=== PATIENT | female | born 2000 | race Hispanic/Latino ===

== ENCOUNTER 2023-12-20 09:38 | Emergency (ER) | payer OTHER, SELFPAY ==
[2023-12-20 09:48] VITALS: BP 118/80; PULSE 104; RESP 14; TEMP 36.3; O2SAT 99
--- NOTE | 2023-12-20 10:33 | ED.GENADULT ---
HPI - General Adult General Chief complaint: Unspecified Stated complaint: note for work Time Seen by Provider: 12/20/23 10:18 Source: patient, RN notes reviewed and old records reviewed Mode of arrival: ambulatory Limitations: no limitations History of Present Illness HPI narrative: 23-year-old female to Express Care with complaint of headache, decreased appetite, nausea and vomiting since yesterday. Patient states that all symptoms aside from nausea and decreased appetite have self resolved. Patient requesting a note stating she was seen today because she missed group therapy yesterday. Patient currently denies chest pain, shortness of breath, nausea, vomiting, diarrhea, ear pain, sore throat, allergies. Respirations even and nonlabored. No signs of distress. Patient able to tolerate fluids by mouth. Related Data Home Medications Medication Instructions Recorded Confirmed No Home Medications 12/20/23 12/20/23 Allergies Allergy/AdvReac Type Severity Reaction Status Date / Time No Known Allergies Allergy Verified 12/20/23 09:54 Review of Systems Review of Systems: All systems reviewed & are unremarkable except as noted in HPI and below Constitutional: Constitutional: Reports as per HPI, Denies fatigue, Denies fever(s), Denies headache(s) and Reports poor appetite Eyes: Eyes: Reports no additional eye complaints ENT: Reports system reviewed and no additional complaints, except as documented Cardiovascular: Cardiovascular: Reports no additional cardiovascular complaints, Denies chest pain and Denies dyspnea Respiratory: Respiratory: Reports no additional respiratory complaints, Denies cough and Denies dyspnea Gastrointestinal: Gastrointestinal: Reports nausea Musculoskeletal: Musculoskeletal: Reports no additional musculoskeletal complaints Neurologic: Reports system reviewed and no additional complaints, except as documented Psychiatric: Psychiatric: Reports no additional psychiatric complaints PMFSH Comments At the time of my signature, I reviewed and agree with the nursing past medical, surgical, social, and family history. There is no relevant family history pertinent to the patient complaint. Exam Const: General: cooperative, healthy appearing, comfortable, no acute distress, alert and well nourished Nutritional Appearance: well nourished Orientation/consciousness: patient oriented x3 Limitations: no limitations HENMT: Head: normal to inspection Ears: external ears normal Face/Nose/Sinus: Normal external nose present, Normal nares present, normal facial exam, No erythema and No edema Face and sinus: normal facial exam, no erythema and no edema Mouth: Yes Normal oral and palatal mucosa present Eyes: General: appearance normal, both eyes and all related structures Neck: Neck: normal visual inspection, full ROM and no meningeal signs Lymphatic: no lymphadenopathy noted and no lymphedema noted Chest: Chest palpation & inspection: normal inspection of the chest Resp: Effort & Inspection: normal respiratory effort and able to speak in complete sentences Auscultation: clear to auscultation bilaterally Cardio: Jugular venous distension: no JVD Rate: regular rate Rhythm: regular rhythm Back/Spine/Pelvis: Cervical Spine: cervical ROM normal Skin: General skin exam: normal color, no rashes or lesions noted and turgor normal Neuro: General: patient oriented x3, gait normal, moves all extremities and no meningeal signs Speech: normal speech Gait exam (Neuro): Normal gait present Extrem: General: normal to inspection, full ROM and capillary refill normal Psych: Appearance: grossly normal and well kempt Course Course Emergency Course: Some parts of this dictation were generated by voice recognition software and may contain typographical and/or grammatical inaccuracies. Level of Care: Express Care Visit Vital Signs Vital signs: Vital Signs Temperature 36.3 C L 12/20/23 09:48
== END 2023-12-20 10:36 | disposition home or self-care (01) ==
PROVIDERS: Emergency Provider Nurse Practitioner Family; PCP Internal Medicine
DX: K52.9 Noninfective gastroenteritis and colitis, unspecified (principal)
CPT/HCPCS: 99202; G0463

== ENCOUNTER 2024-02-07 15:48 | Emergency (ER) | payer OTHER, SELFPAY ==
[2024-02-07 15:59] VITALS: BP 131/95; PULSE 111; RESP 14; TEMP 36.4; O2SAT 100
--- NOTE | 2024-02-07 16:40 | ED.HA ---
HPI - Headache General Chief Complaint: Headache Stated Complaint: Headache/Nausea Time Seen by Provider: 02/07/24 16:20 Source: patient, RN notes reviewed and old records reviewed Mode of arrival: ambulatory Limitations: no limitations History of Present Illness HPI Narrative: 23 year old female presents to [facility] care with complaints of headache last night associated with nausea and did vomit X1 during the night. Patient reports that he thinks maybe he had too much caffeine.Patient reports that headache was in the frontal area of her head but has resolved at present tie. Patient states no known fevers chills or sweats, denies any sore throat or any ear pain or any sinus congestion or drainage. Patient requests note stating she was seen today, she states that she was suppose to go to court and didn't go due to illness. MD elicited complaint: headache (with nausea and one episode of vomiting) Onset (ago): day(s) (last evening but has resolved) Location: frontal Treatments prior to arrival: ibuprofen Related Data Home Medications Medication Instructions Recorded Confirmed aripiprazole 5 mg tablet mg 02/07/24 clonidine HCl 0.1 mg tablet mg 02/07/24 hydroxyzine pamoate 25 mg capsule mg 02/07/24 Allergies Allergy/AdvReac Type Severity Reaction Status Date / Time No Known Allergies Allergy Verified 02/07/24 16:34 Review of Systems Review of Systems: CONSTITUTIONAL: Denies fever, chills, or sweats. EYES: Denies visual changes, redness, or discharge. ENT: Denies rhinorrhea, congestion, sore throat, or otalgia. CARDIOVASCULAR: Denies chest pain, palpitations, or edema. RESPIRATORY: Denies cough or dyspnea. GASTROINTESTINAL: Denies abdominal pain,episode of nausea, vomitingX1, no diarrhea. GENITOURINARY: Denies dysuria or hematuria. SKIN: Denies rash or itching. MUSCULOSKELETAL: Denies back pain, joint pain, or myalgia. NEUROLOGIC: Reports frontal headache last evening which has resolved, no numbness, or weakness. PSYCHIATRIC: Reports history of anxiety or depression. All systems reviewed & are unremarkable except as noted in HPI and below PMFSH Past Medical History Medical History (Updated 02/09/24 @ 08:11 by Luci Moe NP) Fracture of ankle Fracture of arm Surgical History Surgical History (Updated 02/09/24 @ 08:05 by Luci Moe NP) History of repair of congenital cleft palate Social History Social History (Updated 02/09/24 @ 08:07 by Luci Moe NP) Smoking status: Current every day smoker Tobacco type: cigarettes Alcohol intake: unknown Alcohol use details: states no present alcohol use Substance use type: does not use Gender identity (if verbalized by the patient): Female Comments At time of signature, agree with nursing past medical, surgical, social and family history. There is no relevant family history pertinent to the presenting complaint Exam Narrative: GENERAL: Well-appearing, well-nourished, and in no acute distress. HEAD: Normocephalic, atraumatic. EYES: PERRLA and EOMI.no nystagmus ENT: Nares clear, no rhinorrhea or epistaxis. Mucous membranes moist.TM's normal, throat pink with no swelling NECK: Supple.no lymphadenopathy CHEST: Clear to auscultation. No respiratory distress.SAO2 100% on room air HEART: Regular rate and rhythm. No murmur heard. Normal peripheral pulses. ABDOMEN: Soft, nontender, nondistended, normal active bowel sounds.no further nausea or vomiting since early this morning EXTREMITIES: Normal range of motion. No edema. SKIN: Warm, dry, no rash. NEURO: No focal deficits. Alert and oriented x3.voices no headache pain at present time, cranial nerves intact with no deficit, gait steady Course Course Emergency Course: Patient is aware of diagnosis, understands and agrees to treatment plan.? Anticipatory guidance given.? Patient agrees to follow-up as directed and is aware of reasons to seek care at the emergency department. Portion
--- NOTE | 2024-02-07 17:17 | PC.NURSE ---
1659 bp recheck 136/59 right arm.
== END 2024-02-07 16:59 | disposition home or self-care (01) ==
PROVIDERS: Emergency Provider Registered Nurse; PCP Internal Medicine
DX: R51.9 Headache, unspecified (principal); F17.210 Nicotine dependence, cigarettes, uncomplicated
CPT/HCPCS: 99213; G0463

== ENCOUNTER 2025-04-08 21:49 | Emergency (ER) | payer SELFPAY ==
--- OUTSIDE RECORDS SUMMARY | 2017-07-19 19:00 | XMS_ITS | Continuity of Care Document ---
Author Organization [facility] Address [address] [place] [address] Phone Care Team Providers Care Automotive Accessory Installer Name Role Phone Julieta Garcia MD Unavailable Unavailable Allergies, Adverse Reactions, Alerts Substance Reaction Status Criticality No Known Allergies Active No Inform ation Procedures Procedure Date Special Reports Or Forms Refraction Eye Exam & Treatment Eye Exam & Treatment Eye Exam & Treatment Eye Exam & Treatment Eye Exam & Treatment Refraction Eye Exam & Treatment Refraction Advance Directives Directive Yes / No Effective Date File Name No Information Encounters Encounter Description Practice Location Reason(s) For Visit Diagnoses Date Provider Providers Copied on Encounter [facility], [address] [place] [address] [address], [place], [place], [address], [place] tel:[phone] SEC [place] DC Professional No Information 7 Radha Rendon. [address] [place], [address], . tel:[phone] Referring Provider: Edward Espinosa, [address] [facility] [place], [address] . tel:[phone] [facility], [address] [place] [address] [address], [place], [place], [address], [place] tel:[phone] SEC [place] AGUILAR Professional Complete Exam (chief complaint) Exotropia, alternating May-10 06- 6 Oneil Leon. [address] [facility] [address], [place], [place], [address], [place]. tel:[phone] Referring Provider: Edwardlary Espinosa, [address] [facility] [address], [place], [address] . tel:[phone] [facility], [address], [place], [place], [address], [place] tel:[phone] SEC [place] AGUILAR Professional No Information 4 Oneil Leon. [address] [facility], [address] [place], [address], . tel:[phone] Referring Provider: Edward Nestorjoseejuan Espinosa, [address] [facility] [address], [place], [address] . tel:[phone] [facility], [address], [place], [place], [address], [place] tel:[phone] SEC [place] AGUILAR Professional No Information 2 Oneil Leon. [address] [facility], [address] [place], [address], [place]. tel:[phone] Referring Provider: Edward Nestorizabella Espinosa, [address] [facility] [address], [place], [address] . tel:[phone] [facility], [address], [place], [place], [address], [place] tel:[phone] SEC [place] AGUILAR Professional No Information 1 Oneil Leon. [address] [facility], [address] [place], [address], [place]. tel:[phone] Referring Provider: Edward Espinosa, [address] [facility], [place], [address] . tel:[phone] [facility], [address], [place], [place], [address], tel:[phone] SEC [place] LAUREN Professional No Information 9 Nestorizabella Leon. [address] [facility] [place], [address], [place]. tel:[phone] [facility], [address], [place], [place], [address], tel:[phone] SEC [place] LAUREN Professional No Information 7 Oneil Edward. [address] [facility] [place], [address], . tel:[phone] Family History Family Member Type Diagnosis Age At Onset No Information Payers Payer name Insurance type Covered democrat ID Authoriza tion(s) No Information Social History Type Description Quantity Date Captured Comments Sex Female Smoking Status No Information Chief Complaint And Reason For Visit No Information Reason For Referral Reason For Referral No Information History Of Present Illness Encounter Date Complaint History Of Prese nt Illness Complete Exam The 15 year 10 m onth old female presents for Complete Exam ou. Pateint failed the vision test at school. Patient doesn't have current glasses. Functional Status Date Functional Assessmen t No Information Instructions Date Instruction Additional Infor mation Follow up - Return i n 2 years with Edward Riggs M.D. for Complete Exam. Impression/Plan - Di scussed diagnosis in detail with patient. No signs of Glaucoma or AMD OU. Refractive error change, new rx for glasses given to patient. Glasses recommended most of the time. School eye exam form completed in office. Return to clinic in 2 years for complete exam or sooner with any problems. Exotropia, alternati ng - Educational material given Related to Exotropia, alternating - RTC in 1 year for complete exa m Related to See impression: general plan General plan -ESOTRO R[place] NOS -ACCOMMODATIVE ESOTROPIA - Diagnosis discussed in detail with pt. New rx for glasses provided to pt today. RTC in 1 year for complete exam. Educational materials provided:about today's exam. Related to See impression: general plan astygmatism - glasse s optional- 20/40 w/o acc et in past-ortho now and 04/16 depth perception Assessments Type Assessment Date No Information Patient Care Teams Name Effective Dates (start - stop) Status Members No Information
--- OUTSIDE RECORDS SUMMARY | 2017-07-19 19:00 | XMS_ITS | Continuity of Care Document ---
Author Organization [facility] Address [address] [place] [address] Phone Care Team Providers Care Director Enterprise Systems Name Role Phone Julieta Garcia MD Unavailable [...] Diagnoses Date Provider Providers Copied on Encounter [facility], [address] [place] [address] [address], [place], [place], [address], [place] tel:[phone] SEC [place] Professional No Information 7 Radha Rendon. [address] [place], [address], . tel:[phone] Referring Provider: Edward Espinosa, [address] [facility] [place] [place], [address] . tel:[phone] [facility], [address] [place] [address] [address], [place], [place], [address], [place] tel:[phone] SEC [place] AGUILAR Professional Complete Exam (chief complaint) Exotropia, alternating May-10 06- 6 Oneil Leon. [address] [facility] [address], [place], [place], [address], [place]. tel:[phone] Referring Provider: Edwardlary Espinosa, [address] [facility] [address], [place], [address] . tel:[phone] [facility], [address], [place], [place], [address], [place] tel:[phone] SEC He[place] AGUILAR Professional No Information 4 Oneil Leon. [address] [facility], [address] [place], [address], . tel:[phone] Referring Provider: Edward Nestorjoseejuan Espinosa, [address] [facility] [address], [place], [address] . tel:[phone] [facility], [address], [place], [place], [address], [place] tel:[phone] SEC He[place] AGUILAR Professional No Information 2 Oneil Leon. [address] [facility], [address] [place], [address], [place]. tel:[phone] Referring Provider: Edward Nestorizabella Espinosa, [address] [facility] [address], [place], [address] . tel:[phone] [facility], [address], [place], [place], [address], [place] tel:[phone] SEC He[place] AGUILAR Professional No Information 1 Oneil Leon. [address] [facility], [address] [place], [address], [place]. tel:[phone] Referring Provider: Edward Espinosa, [address] [facility] [address], [place], [address] . tel:[phone] [facility], [address], [place], [place], [address], tel:[phone] SEC [place] LAUREN Professional No Information 9 Nestorizabella Leon. [address] [facility] [place], [address], [place]. tel:[phone] [facility], [address], [place], [place], [address], tel:[phone] SEC [place] LAUREN Professional No Information 7 Oneil Edward. [address] [facility] [place], [address], . tel:[phone] Family History Family Member Type Diagnosis Age At Onset No Information Payers Payer name Insurance type Covered libertarian ID Authoriza tion(s) No Information Social History [...]
--- OUTSIDE RECORDS SUMMARY | 2025-04-08 21:51 | XMS_ITS | Clinical Summary ---
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 Polysubstance abuse 11/15/2022 Resolved Problems Problem Noted Date Diagnosed Date Resolved Date Hypokalemia 11/16/2022 11/17/2022 Encounters Date Type Department Care Team Description 03/28/2025 1:30 PM CDT - 03/28/2025 9:55 PM CDT Emergency [facility] Emergency Department [address] [place] [address] Visual hallucinations (Primary Dx) Discharge Disposition: Discharge to psych hospital or psych unit 02/16/2025 12:44 AM CDT - 02/16/2025 2:13 AM CDT Emergency [facility] Emergency Department [address] [place] [address] Well woman exam (Primary Dx) Discharge Disposition: Discharge to home or self care from Last 3 Months Surgical History Surgery Date Site/Laterality Comments NO PAST SURGERIES Medical History Medical History Date Comments Adhd Anxiety History of suicidal ideation Family History Medical History Relation Name Comments Hypertension Maternal Grandmother Relation Name Status Comments Maternal Grandmother Social History Tobacco Use Types Packs/Day Years Used Date Smoking Tobacco: Every Day Vaping Tobacco Cessation:Ready to Q uit: Not Asked; Counseling Given: Not Answered Personal Safety Answer Date Recorded Have you ever been in or are you currently in a harmful physical or emotional relationship or is someone making you feel afraid or unsafe? 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 Gender Identity Not on file Sexual Orientation Not on file Obstetrics History Para Term AB IAB SAB Ectopic Multiple Livin g Live Births 0 0 0 0 0 0 0 0 0 0 0 Last Filed Vital Signs Vital Sign Reading Time Taken Comments Blood Pressure 108/71 03/28/2025 7:22 PM CDT Pulse 84 03/28/2025 7:22 PM CDT Temperature 36.9 C (98.4 F) 03/28/2025 1:29 PM CDT Respiratory Rate 16 03/28/2025 1:29 PM CDT Oxygen Saturation 98% 03/28/2025 7:22 PM CDT Inhaled Oxygen Concentration - - Weight 72.6 kg (160 lb) 03/28/2025 1:29 PM CDT Height 154.9 cm (5' 1) 03/28/2025 1:29 PM CDT Body Mass Index 30.23 03/28/2025 1:29 PM CDT Plan of Treatment Health Maintenance Due Date Last Done Comments Cervical Cancer Screening 1998 Depression Screening 1998 Hepatitis C Screening 1998 Pneumococcal vaccine <65 (1 of 1 - PPSV23, PCV20, or PCV21) 2004 09/08/2000, 1998, 1998 Regular Well Visit/Exam 18-64 2016 Covid-19 Vaccine (3 2023-2 5 season) 2024 04/20/2021, 03/23/2021 Influenza Vaccine (#1) 2025 , 05/07/2020, 06/22/2019, Additional history exists DTaP/Tdap/Td Vaccine (8 - Td or Tdap) 10/04/2029 10/04/2019, 07/25/2008, 02/28/2004, Additional history exists Hepatitis B Screening Completed 10/28/1999 , 1998, 1998 Varicella Vaccines Completed 12/08/2006, 02/17/2000 HPV Vaccines Completed 06/12/2010, 08/11/2009, 07/23/2009 Procedures Procedure Name Priority Date/Time Associated Diagnosis Comments POCT HCG, URINE Routine 03/28/2025 2:15 PM CDT URINALYSIS, MICROSCOPIC ONLY STAT 03/28/2025 2:12 PM CDT DRUGS OF ABUSE SCREEN, URINE WITHOUT CONFIRMATION STAT 03/28/2025 2:12 PM CDT URINE CULTURE STAT 03/28/2025 2:12 PM CDT URINALYSIS AND REFLEX TO MICROSCOPIC AND CULTURE STAT 03/28/2025 2:12 PM CDT SALICYLATE LEVEL STAT 03/28/2025 1:55 PM CDT ACETAMINOPHEN LEVEL STAT 03/28/2025 1 :55 PM CDT MAGNESIUM Routine 03/28/2025 1:55 PM CDT EGFR STAT 03/28/2025 1:55 PM CDT DIFFERENTIAL AUTO STAT 03/28/2025 1:5 5 PM CDT ETHANOL STAT 03/28/2025 1:55 PM CDT THYROID FUNCTION CASCADE STAT 03/28/2025 1:55 PM CDT COMPREHENSIVE METABOLIC PANEL STAT 03/28/2025 1:55 PM CDT CBC WITH AUTO DIFFERENTIAL STAT 03/28/2025 1:55 PM CDT COVID-19 CORONAVIRUS RNA STAT 03/28/2025 1:55 PM CDT HCG, BLOOD, QUANTITATIVE STAT 02/16/2025 1:15 AM CDT HCG, URINE, QUALITATIVE STAT 02/16/2025 12:44 AM CDT from Last 3 Months Results * POCT hCG, urine (03/28/2025 2:15 PM CDT) HCG, ur, POC Negative Negative Lot Number [id number] QC Backgroud Clear Acceptable QC Control Line Acceptable Urine 03/28/2025 2:15 PM CDT Magan Alexander MD POINT OF CARE TEST ORDERABLES Final Result * (ABNORMAL) Urinalysis reflex to microscopic and culture Urine (03/28/2025 2:12 PM CDT) Color, ur Straw Yellow Clarity, ur Clear Clear [facility] ([place]) Specific gravity, ur 1.002(L) 1.003 - 1.030 [facility] ([place]) pH, urine 7.5 [facility] ([place]) Comment: Interpretive Data U rine pH is affected by diet, medications, systemic acid-base disturbances, and renal tubular function. pH may affect urinary stone formation. For example, urine pH below 6.0 may help reduce the tendency for calcium phosphate stones and pH greater than 6.0 may reduce the tendency for uric acid stone formation. Source: [employer] Current Interpretive Data was last revised on 2017 Protein, ur ql Negative Negative [facility] ([place]) Glucose, ur ql Negative Negative [facility] ([place]) Ketones, ur Negative Negative [facility] [place]) Bilirubin, ur Negative Negative [facility] ([place]) Blood, ur Negative Negative [facility] [place]) Urobilinogen, ur <2.0 <2.0 mg/dL [facility] ([place]) Nitrite, ur Negative Negative [facility] ([place]) Leukocyte esterase, ur 2+(A) Negative [facility] ([place]) UA reflex comment Reflex to microscopic UA will be performed. [facility] ([place]) Urine 03/28/2025 2:12 PM CDT 03/28/2025 2:19 PM CDT Magan Alexander MD LAB MICROBIOLOGY - GENERAL ORDERABLES Final Result [facility] ([place]) 1 [facility] Department [place] [address] * Drugs of Abuse Screen, Urine without Confirmation (03/28/2025 2:12 PM CDT) Amphetamine, ur Not Detected CutOff 500ng/mL [facility] ([place]) Comment: Interpretive Data - Amphetamines: Samples containing greater than 500 ng/mL d-methamphetamine or other cross-reacting amphetamine compounds are reported as positive. Amphetamine immunoassays are subject to significant false positive rates due to cross-reactivity of non-amphetamine drugs. Confirmatory testing required for definitive results. Current Interpretive Data was last reviewed 2023. Barbiturates, ur Not Detected CutOff 200ng/mL [facility] ([place]) Comment: Interpretive Data - Barbiturates: Samples containing greater than 200 ng/mL secobarbital or other cross-reacting barbiturate compounds are reported as positive. False positive and false negative results are possible. Confirmatory testing required for definitive results. Current Interpretive Data was last reviewed 2023. Benzodiazepines, ur Not Detected CutOff 100ng/mL [facility] ([place]) Comment: Interpretive Data - Benzodiazepines: Samples containing greater than 100 ng/mL nordiazepam or other cross-reacting compounds are reported as positive. False positive and false negative results are possible. Confirmatory testing required for definitive results. Current Interpretive Data was last reviewed 2023. Cannabinoids, ur Not Detected CutOff 50 ng/mL [facility] ([place]) Comment: Interpretive Data - Cannabinoids: Samples containing greater than 50 ng/mL delta-9 THC -COOH or other cross- reacting compounds are reported as positive. False positive and false negative results are possible. Confirmatory testing required for definitive results. Current Interpretive Data was last reviewed 2023. Cocaine, ur Not Detected CutOff 150ng/mL [facility] ([place]) Comment: Interpretive Data - Cocaine: Samples containing greater than 150 ng/mL benzoylecgonine or other cross- reacting compounds are reported as positive. False positive and false negative results are possible. Confirmatory testing required for definitive results. Current Interpretive Data was last reviewed 2023. Fentanyl, Ur Not Detected CutOff 5 ng/mL [facility] ([place]) Comment: Interpretive Data - Fentanyl: Samples containing greater than 5 ng/mL norfentanyl, fentanyl, or other cross-reacting fentanyl compounds are reported as positive. False positive and false negative results are possible. Confirmatory testing required for definitive results. Current Interpretive Data was last reviewed 2023. Methadone, ur Not Detected CutOff 300ng/mL [facility] ([place]) Comment: Interpretive Data - Methadone: Samples containing greater than 300 ng/mL d,l-methadone or other cross-reacting compounds are reported as positive. False positive and false negative results are possible. Confirmatory testing required for definitive results. Current Interpretive Data was last reviewed 2023. Opiates, ur Not Detected CutOff 300ng/mL [facility] ([place]) Comment: Interpretive Data - Opiates: Samples containing greater than 300 ng/mL morphine or other cross-reacting compounds are reported as positive. False positive and false negative results are possible. Confirmatory testing required for definitive results. Current Interpretive Data was last reviewed 2023. Oxycodone, ur NOT DETECTED CutOff 100ng/mL [facility] ([place]) Comment: Interpretive Data - Oxycodone: Samples containing greater than 100 ng/mL oxycodone or other cross-reacting compounds are reported as positive. False positive and false negative results are possible. Confirmatory testing required for definitive results. Current Interpretive Data was last reviewed 2023. Phencyclidine, ur Not Detected CutOff 25 ng/mL [facility] ([place]) Comment: Interpretive Data - Phencyclidine: Samples containing greater than 25 ng/mL phencyclidine or other cross-reacting compounds are reported as positive. False positive and false negative results are possible. Confirmatory testing required for definitive results. Current Interpretive Data was last reviewed 2023. Urine Creatinine 14 mg/dL [facility] ([place]) Comment: Interpretive Data Urine Creatinine: < 10 mg/dL is extremely dilute = or > 10 but < 20 mg/dL is dilute = or > 20 mg/dL is normal Current Interpretive Data was last revised on 2017. Urine 03/28/2025 2:12 PM CDT 03/28/2025 2:19 PM CDT Narrative [facility] ([place]) - 03/28/2025 3:13 PM CDT Drug of Abuse screening is performed by immunoassay for medical purposes only. This is not to be used for Pain Management purposes. Magan Alexander MD LAB URINE ORDERABLE S Final Result Performing Organization Address [facility] Co de Phone Number [facility] ([place] 1 [facility] [place] [address] * (ABNORMAL) Urinalysis, microscopic only (03/28/2025 2:12 PM CDT) WBC, ur 11-20(A) 0 - 5 /HPF RBC, ur 0-2 0 - 2 /HPF [facility] ([place]) Epithelial cells, squamous, ur 1-5 0 - 5 /HPF [facility] ([place]) Culture Reflex Comment Reflex to urine culture will be performed. [facility] ([place]) Urine 03/28/2025 2:12 PM CDT 03/28/2025 2:19 PM CDT us Magan Alexander MD LAB URINE ORDERABLE S Final Result Performing Organization Address City/[facility]/ZIP Co de Phone Number [facility] ([place] 1 [facility] [place] [address] * Urine culture Urine (03/28/2025 2:12 PM CDT) Report Final Report: Less than 100,000 colonies/mL (clinically insignificant growth based on current clinical standards) Comment:Testing performed by : [facility], [address] [facility] [place]., [address] Organism (CLINICALLY INSIGNIFICANT GROWTH [facility] ([place]) Urine 03/28/2025 2:12 PM CDT 03/28/2025 4:15 PM CDT Narrative [facility] ([place]) - 03/30/2025 6:10 AM CDT Urine culture reflexed based upon urinalysis results. Testing performed by [facility] ([phone]) Magan Alexander MD LAB MICROBIOLOGY - GENERAL ORDERABLES Final Result [facility] ([place]) 1 [facility] Department [place] [address] * COVID-19 Coronavirus RNA Nasopharyngeal (03/28/2025 1:55 PM CDT) COVID-19 RNA Negative Negative Nasopharyngeal 03/28/2025 1: 55 PM CDT 03/28/2025 2:00 PM CDT Narrative [facility] ([place]) - 03/28/2025 2:33 PM CDT Is the patient experiencing any symptoms consistent with COVID (eg. Fever, cough, shortness of breath)?->No What is the reason for testing?->Screening prior to Behavioral health admission Interpretive data: Testing performed by [facility]. This test is performed using the Platial Xpert Xpress CoV-2 plus assay. This is a real-time RT-PCR test intended for the qualitative detection of nucleic acid from the SARS-CoV-2. This assay has been cleared by the [place] Food and Drug administration. The performance characteristics have been verified by [facility]. Results must be considered in the clinical context, and a negative result does not rule out infection. Interpretive data last revised 2024. Interpretive data: Testing performed by [facility]. This test is performed using the Platial Xpert Xpress CoV-2 plus assay. This is a real-time RT-PCR test intended for the qualitative detection of nucleic acid from the SARS-CoV-2. This assay has been cleared by the [place] Food and Drug administration. The performance characteristics have been verified by [facility]. Results must be considered in the clinical context, and a negative result does not rule out infection. Interpretive data last revised 2024. us Magan Alexander MD LAB MICROBIOLOGY - GENERAL ORDERABLES Final Result [facility] ([place]) 1 [facility] [place] [address] * eGFR (03/28/2025 1:55 PM CDT) eGFR >90 >=60 mL/min/1. 73 m2 Comment: Interpretive Data Reference Interval Normal >/= 90 mL/min/1.73m2 Mildly decreased* 60 - 89 mL/min/1.73m2 Mildly to moderately decreased 45 - 59 mL/min/1.73m2 Moderately to severely decreased 30 - 44 mL/min/1.73m2 Severely decreased 15 - 29 mL/min/1.73m2 Kidney Failure < 15 mL/min/1.73m2 *Relative to young adult level Estimated glomerular filtration rate is determined by the 2020 CKD-EPI equation recommended by the National Kidney Foundation (A Unifying Approach to GFR Estimation: Recommendations of the NKF-ASK Task Force on Reassessing the Inclusion of Race in Diagnosing Kidney Disease, JASN 2020). The CKD-EPI equation should not be used for patients with unstable renal function and has not been validated in children and those over 70. Current interpretive data was last reviewed 2021. Blood 03/28/2025 1:55 PM CDT 03/28/2025 2:00 PM CDT us Magan Alexander MD LAB BLOOD ORDERABLE S Final Result [facility] ([place]) 1 [facility] [place] [address] * Differential, auto (03/28/2025 1:55 PM CDT) Neutrophil abs 3.32 1.50 - 6.50 K/cumm Imm gran abs 0.04 0.00 - 0.10 K/cumm [facility] ([place]) Lymphocyte abs 1.48 0.80 - 3.30 K/cumm [facility] ([place]) Monocyte abs 0.62 0.20 - 0.80 K/cumm [facility] ([place]) Eosinophil abs 0.24 0.00 - 0.50 K/cumm [facility] ([place]) Basophil abs 0.04 0.00 - 0.10 K/cumm [facility] ([place]) Neutrophil pct 57.8 % [facility] ([place]) Comment: Interpretive Data Percent cell count reference ranges are not reported, since discordance with absolute values may lead to misinterpretation of CBC data. Current Interpretive Data was last revised on 2017. Imm gran pct 0.7 % [facility] ([place]) Comment: Interpretive Data Percent cell count reference ranges are not reported, since discordance with absolute values may lead to misinterpretation of CBC data. Current Interpretive Data was last revised on 2017. Lymphocyte pct 25.8 % [facility] ([place]) Comment: Interpretive Data Percent cell count reference ranges are not reported, since discordance with absolute values may lead to misinterpretation of CBC data. Current Interpretive Data was last revised on 2017. Monocyte pct 10.8 % [facility] ([place]) Comment: Interpretive Data Percent cell count reference ranges are not reported, since discordance with absolute values may lead to misinterpretation of CBC data. Current Interpretive Data was last revised on 2017. Eosinophil pct 4.2 % [facility] ([place]) Comment: Interpretive Data Percent cell count reference ranges are not reported, since discordance with absolute values may lead to misinterpretation of CBC data. Current Interpretive Data was last revised on 2017. Basophil pct 0.7 % [facility] ([place]) Comment: Interpretive Data Percent cell count reference ranges are not reported, since discordance with absolute values may lead to misinterpretation of CBC data. Current Interpretive Data was last revised on 2017. Blood 03/28/2025 1:55 PM CDT 03/28/2025 2:00 PM CDT us Magan Alexander MD LAB BLOOD ORDERABLE S Final Result [facility] ([place]) 1 [facility] Department [place] [address] * Thyroid Function [place] (03/28/2025 1:55 PM CDT) [facility] TSH 2.32 0.30 - 4.20 mcIUnit/mL [facility] ([place]) Blood 03/28/2025 1:55 PM CDT 03/28/2025 2:00 PM CDT Magan Alexander MD LAB BLOOD ORDERABLE S Final Result Performing Organization Address [facility]/ZIP Co de Phone Number [facility] ([place]) 1 [facility] [place] [address] * (ABNORMAL) CBC with auto differential (03/28/2025 1:55 PM CDT) [facility] WBC 5.74 3.80 - 9.90 K/cumm Hgb 11.8(L) 11.9 - 15.5 g/dL [facility] ([place]) Hct 36.0 35.6 - 45.5 % [facility] ([place]) Plt 178 150 - 400 K/cumm [facility] ([place]) MPV 11.7 9.1 - 12.3 fL [facility] ([place]) RBC 4.13 3.90 - 5.20 M/cumm [facility] ([place]) MCV 87.2 81.3 - 96.4 fL [facility] ([place]) MCH 28.6 27.1 - 33.3 pg [facility] [place]) MCHC 32.8 32.3 - 35.7 g/dL [facility] ([place]) RDW CV 13.2 11.1 - 14.9 % [facility] [place]) RDW SD 42.3 35.7 - 48.1 fL [facility] ([place]) NRBC abs 0.00 0.00 - 0.01 K/cumm [facility] ([place]) Blood Venous blood specimen / Unknown 03/28/2025 1:55 PM CDT 03/28/2025 2:00 PM CDT us Magan Alexander MD LAB BLOOD ORDERABLE S Final Result [facility] ([place]) 1 [facility] [place] [address] * Magnesium (03/28/2025 1:55 PM CDT) Magnesium 2.0 1.4 - 2.5 mg/dL [facility] ([place]) Blood 03/28/2025 1:55 PM CDT 03/28/2025 7:25 PM CDT us Pierce Huber MD LAB BLOOD ORDERABLES Final Res ult Performing Organization Address [facility] Co de Phone Number [facility] ([place]) 1 [facility] [place] [address] * Ethanol (03/28/2025 1:55 PM CDT) Ethanol <10 <=10 mg/dL [facility] ([place]) Comment: Interpretive Data Legal limit of intoxication > or = 80 mg/dL Levels > or = 400 mg/dL are potentially TOXIC. Current interpretive data was last revised on 2018. Blood 03/28/2025 1:55 PM CDT 03/28/2025 2:00 PM CDT us Magan Alexander MD LAB BLOOD ORDERABLE S Final Result [facility] ([place]) 1 [facility] [place] [address] * Acetaminophen level (03/28/2025 1:55 PM CDT) Acetaminophen <5 <=5 mcg/mL [facility] ([place]) Comment: Markedly elevated levels of Acetaminophen and it's metabolites may lead to false low test results for cholesterol, HDL, triglycerides and uric acid with the manufacturers test methods used by our lab. Interpretive Data Significant hepatic injury may occur and treatment with n-acetyl cysteine is generally recommended if the acetaminophen level exceeds: 150 mcg/mL at 4 hours after ingestion 75 mcg/mL at 8 hours after ingestion 38 mcg/mL at 12 hours after ingestion 19 mcg/mL at 16 hours after ingestion Consult toxicology or poison control ([phone]) for unknown ingestion time. Current interpretive data was last revised 2023. Blood 03/28/2025 1:55 PM CDT 03/28/2025 7:25 PM CDT Pierce Huber MD LAB BLOOD ORDERABLES Final Res ult Performing Organization Address City/[facility]/ZIP Co de Phone Number [facility] ([place]) [address] [place] [address] [place] [address] * Salicylate level (03/28/2025 1:55 PM CDT) Salicylate <5.0 <=5.0 mg/dL [facility] ([place]) Comment: Interpretive Data Toxic: 30 mg/dL or greater. Current interpretive data was last revised 2023. Blood 03/28/2025 1:55 PM CDT 03/28/2025 7:25 PM CDT Pierce Huber MD LAB BLOOD ORDERABLES Final Res ult Performing Organization Address City/[facility]/ZIP Co de Phone Number [facility] ([place]) [address] [place] [address] [place] [address] * (ABNORMAL) Comprehensive metabolic panel (03/28/2025 1:55 PM CDT) Sodium 141 135 - 145 mmol/L [facility] ([place]) Potassium, pl 3.5 3.3 - 4.9 mmol/L [facility]) Chloride 102 97 - 110 mmol/L [facility] [place]) CO2 26 22 - 32 mmol/L [facility] [place]) Anion gap 13 2 - 15 mmol/L [facility] ([place]) BUN 3(L) 6 - 25 mg/dL [facility] ([place]) Creatinine 0.48(L) 0.60 - 1.10 mg/dL [facility] ([place]) Glucose 88 70 - 199 mg/dL [facility] ([place]) Comment: Interpretive Data Fasting glucose >/= 126 mg/dl is diagnostic for diabetes. Fasting is defined as no caloric intake for at least 8 hours. Fasting glucose between 100 mg/dl to 125 mg/dl is diagnostic of prediabetes. In a patient with classic symptoms of hyperglycemia or hyperglycemic crisis, a random glucose >/= 200 mg/dl is diagnostic for diabetes. In the absence of unequivocal hyperglycemia, results should be confirmed by repeat testing. The classification and Diagnosis of Diabetes Diabetes Care 2021; 46: S19-S40. Current interpretive data was last revised 2022. Calcium 8.1(L) 8.5 - 10.3 mg/dL [facility] ([place]) Bilirubin, total 0.3 0.1 - 1.2 mg/dL [facility] ([place]) Protein, pl 6.6 6.5 - 8.5 g/dL [facility] ([place]) Albumin 3.8 3.5 - 5.0 g/dL [facility] ([place]) Alk phos 83 40 - 130 Units/L [facility] ([place]) ALT 14 7 - 45 Units/L [facility] [place]) AST 19 10 - 45 Units/L [facility] ([place]) Blood 03/28/2025 1:55 PM CDT 03/28/2025 2:00 PM CDT us Magan Alexander MD LAB BLOOD ORDERABLE S Final Result [facility] ([place]) 1 [facility] Department of Laboratories [place], [place] [id number] * hCG, blood, quantitative (02/16/2025 1:15 AM CDT) hCG, quant <5.0 0.0 - 5.0 IUnits/L Comment: Interpretive Data Male: < 5 IU/L Non- premenopausal Female: <5 IU/L The Jessica hCG Beta Quant assay procedure was used. Results from different manufacturers or methods may not be comparable. Serial testing should be performed using the same method. Interpretive Data was last revised on 2023 Blood 02/16/2025 1:15 AM CDT 02/16/2025 1:21 AM CDT Bridger DOSHI LAB BLOOD ORDERA BLES Edited Result - Final [facility] ([place]) 1 [facility] [place] [address] * hCG, urine, qualitative (02/16/2025 12:44 AM CDT) HCG, ur Negative Negative Urine 02/16/2025 12:4 4 AM CDT 02/16/2025 12:45 AM CDT Sun [facility] LAB URINE ORDERABLES Zhanna l Result Performing Organization Address [facility] Co de Phone Number [facility] ([place]) 1 [facility] [place] [address] from Last 3 Months Insurance [facility] Advance Directives For more information, please contact: [phone] * Full Code (Latest Code Status on File) Date Activated Date Inactivated Comments 11/15/2022 9:06 PM 11/18/2022 9:47 PM Care Teams Passenger Train Braker Relationship Specialty Start Date End Date Hetal Malhotra NP [address] [place] [address] PCP - General Nurse Practitioner 03/28/25
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
--- NOTE | 2025-04-08 21:53 | ED_ITS ---
HPI - Animal Bite General Chief Complaint: Animal Bite Stated Complaint: dog bite Time Seen by Provider: 04/08/25 21:52 Source: patient and EMS Mode of arrival: ambulatory Limitations: no limitations History of Present Illness HPI narrative: Patient is a 24-year-old female homeless patient presented to the ER after being bitten by a dog. She had 4 wounds from the dog. One scalp and 3 on the legs. Tetanus shot up-to-date in the past year per patient. Patient was walking through someone's yd and the dog was tied up to the fence wall guarding the house and she was attacked. This was provoked situation as she was trespassing in this person's yd. Dog has shots up-to-date and vaccines up-to-date. EMS talk to the dog owners and he was acting normal. MD complaint: animal bite and animal-related injury Onset (ago): hour(s) ( One) Animal: dog Description of animal: household pet, immunizations UTD and appeared well Mechanism: bite Location: head Location - Extremities: Bilateral: thigh Pain description: sharp Severity scale (1-10): 3 Context: provoked ( patient was trespassing in this person's yd) Associated symptoms: none Treatments prior to arrival: pressure Related Data Patient tetanus UTD: Yes Home Medications ?Medication ?Instructions ?Recorded ?Confirmed ?Last Taken ?Type aripiprazole 5 mg tablet mg 02/07/24 Unknown History clonidine HCl 0.1 mg tablet mg 02/07/24 Unknown Histo ry hydroxyzine pamoate 25 mg capsule mg 02/07/24 Unknown History Allergies Allergy/AdvReac Type Severity Reaction Status Date / Time No Known Allergies Allergy Verified 04/08/25 22:08 Review of Systems Review of Systems: All systems reviewed & are unremarkable except as noted in HPI and below Constitutional: Constitutional: Reports no additional constitutional complaints Eyes: Eyes: Reports no additional eye complaints ENT: Reports system reviewed and no additional complaints, except as documented Cardiovascular: Cardiovascular: Reports no additional cardiovascular complaints Respiratory: Respiratory: Reports no additional respiratory complaints Gastrointestinal: Gastrointestinal: Reports no additional gastrointestinal complaints Genitourinary: Genitourinary: Reports no additional female genitourinary complaints Musculoskeletal: Musculoskeletal: Reports no additional musculoskeletal complaints Integumentary/Breasts: Skin/Breast: Reports system reviewed and no additional complaints, except as docu Neurologic: Reports system reviewed and no additional complaints, except as documented Psychiatric: Psychiatric: Reports no additional psychiatric complaints Endocrine: Endocrine: Reports no additional endocrine complaints Hematologic/Lymphatic: Hematologic/Lymphatic: Reports no additional hematologic/lymphatic complaints Allergic/Immunologic: Allergic/Immunologic: Reports no additional a llergic/immunologic complaints PMFSH Past Medical History Medical History Fracture of ankle Fracture of arm Surgical History Surgical History History of repair of congenital cleft palate Social History Social History Smoking status: Current every day smoker Tobacco type: cigarettes Alcohol intake: unknown Alcohol use details: states no present alcohol use Substance use type: does not use Gender identity (if verbalized by the patient): Female Exam Const: General: healthy appearing Nutritional Appearance: well nourished Orientation/consciousness: patient oriented x3 HENMT: Head: normal to inspection Ears: external ears normal Face/Nose/Sinus: Normal external nose present Eyes: Conjunctivae: conjunctivae normal Pupils: Equal, round and reactive pupils present EOM: EOMs intact bilaterally Neck: Neck: normal visual inspection Chest: Chest palpation & inspection: normal inspection of the chest Resp: Effort & Inspection: normal respiratory effort and not labored Auscultation: clear to auscultation bilaterally and no crackles Cardio: Rate: regular rate Rhythm: regular rhythm Heart sounds: no murmurs GI: Inspection: non-distended GI Palp: Yes Soft to palpation and No Tenderness to palpation present (GI) Auscultation: normal bowel sounds : General: Yes bladder normal to palpation Back/Spine/Pelvis: Back: no CVA tenderness Skin: General skin exam: normal color Rashes: no rashes Wounds: wound noted Other: midline posterior scalp had a linear 3 cm laceration with bleeding controlled and no signs of infection at this time; soft tissue appreciated with fat layer; also there were 3 more wounds on the lower extremity on with 1 on the left and 2 on the right as teeth dominic puncture wounds and bleeding was controlled and no signs of infection at this time Neuro: General: patient oriented x3, moves all extremities and no meningeal signs Extrem: General: normal to inspection Psych: Mental Status: mental status grossly normal Affect: normal affect Attitude: cooperative Course Vital Signs Vital signs: Vital Signs Temperature 36.7 C 04/08/25 21:55 Pulse Rate 103 H 04/08/25 21:55 Respiratory Rate 22 H 04/08/25 21:55 Blood Pressure 140/103 H 04/08/25 21:55 Pulse Oximetry 98 04/08/25 21:55 Oxygen Delivery Room Air 04/08/25 21:55 Temperature 36.7 C 04/08/25 21:55 Pulse Rate 103 H 04/08/25 21:55 Respiratory Rate 22 H 04/08/25 21:55 Blood Pressure 140/103 H 04/08/25 21:55 Pulse Oximetry 98 04/08/25 21:55 Oxygen Delivery Room Air 04/08/25 21:55 Procedures Other Procedure Procedure 1: Other Procedure: Scalp linear laceration 3 cm: 2 madi placed after cleaning the area with chlorhexidine spray for closure partially as this was a dog bite with good margins appreciated and proximity made for closure; patient tolerated procedure well and no complications MDM - Animal Bite MDM Narrative Medical decision making narrative: patient is a 24-year-old female with multiple wounds from dog bite provoked event. Staple scalp. Clean up all wounds and bandages on the lower extremity. Tetanus up-to-date. Feed the patient. Assist with discharge needs. Discharge Plan Discharge Clinical Impression: Dog bite Qualifiers: Encounter type: initial encounter Qualified Code(s): W54.0XXA - Bitten by dog, initial encounter Patient Disposition: Home Condition: Stable Instructions: Antibiotic Form, Animal Bite (ED) Additional Instructions: Please have the madi removed in your head in 7-10 days. Take all antibiotics prescribed. Patient Language: Northern Irish Prescriptions: New amoxicillin-pot clavulanate 875-125 mg tablet 1 tablet PO BID 10 Days Qty: 20 0RF No Action clonidine HCl 0.1 mg tablet hydroxyzine pamoate 25 mg capsule aripiprazole 5 mg tablet ondansetron 4 mg tablet,disintegrating 4 mg PO Q6H PRN (Reason: nausea and vomiting) Qty: 10 0RF Follow-up/Referrals: UNKNOWN,DOCTOR [Primary Care Provider] Time of Disposition: 01:03
[2025-04-08 21:55] VITALS: BP 140/103; PULSE 103; RESP 22; TEMP 36.7; O2SAT 98
--- OUTSIDE RECORDS SUMMARY | 2025-04-08 22:23 | XMS_ITS | Clinical Summary ---
Author Organization [facility] Address [address] [place] [address] Care Team Providers Care [employer] Developer Name Role Phone MaryaFernandoHetaljayleen Martin NP Primary [...] CDT - 03/28/2025 9:55 PM CDT Emergency [facility] Emergency Department [address] [place] [address] Visual hallucinations (Primary Dx) Discharge Disposition: Discharge to psych hospital or psych unit 02/16/2025 12:44 AM CDT - 02/16/2025 2:13 AM CDT Emergency [facility] Emergency Department [address] [place] [address] Well woman exam (Primary Dx) Discharge Disposition: [...] on file 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 Source: [employer] Current Interpretive Data was last revised on [...] ([place]) Leukocyte esterase, ur 2+(A) Negative [facility] ([place]) UA reflex comment Reflex to microscopic UA will be performed. [facility] ([place]) Urine 03/28/2025 2:12 PM CDT 03/28/2025 2:19 PM CDT Magan Alexander MD LAB MICROBIOLOGY - GENERAL ORDERABLES Final Result [facility] ([place]) [address] [facility] [place] [address] * Drugs of Abuse Screen, Urine without Confirmation (03/28/2025 2:12 PM CDT) Amphetamine, ur Not Detected CutOff 500ng/mL [facility] ([place]) Comment: Interpretive Data - Amphetamines: Samples containing greater than 500 ng/mL d-methamphetamine or other cross-reacting amphetamine compounds are reported as positive. Amphetamine immunoassays are subject to significant false positive rates due to cross-reactivity of non-amphetamine drugs. Confirmatory testing required for definitive results. Current Interpretive Data was last reviewed 2023. Barbiturates, ur Not Detected CutOff 200ng/mL [facility] ([place]) Comment: Interpretive Data - Barbiturates: Samples [...] ur Not Detected CutOff 50 ng/mL [facility] ([place]) Comment: Interpretive Data - Cannabinoids: Samples [...] ORDERABLE S Final Result Performing Organization Address [facility] Co de Phone Number [facility] ([place]) [address] [facility] [place] [address] * (ABNORMAL) Urinalysis, microscopic only (03/28/2025 2:12 PM CDT) WBC, ur 11-20(A) 0 - 5 /HPF RBC, ur 0-2 0 - 2 /HPF [facility] ([place]) Epithelial cells, squamous, ur 1-5 0 - 5 /HPF [facility] ([place]) Culture Reflex Comment Reflex to urine culture will be performed. [facility] ([place]) Urine 03/28/2025 2:12 PM CDT 03/28/2025 2:19 PM CDT us Magan Alexander MD LAB URINE ORDERABLE S Final Result Performing Organization Address City/[facility]/ZIP Co de Phone Number [facility] ([place] 1 [facility] [place] [address] * Urine culture Urine (03/28/2025 2:12 PM CDT) Report Final Report: Less than 100,000 colonies/mL (clinically insignificant growth based on current clinical standards) Comment:Testing performed by : [facility], [address] [facility] [place] [place] [address] Organism (CLINICALLY INSIGNIFICANT GROWTH [facility] ([place]) Urine 03/28/2025 2:12 PM CDT 03/28/2025 4:15 PM CDT Narrative [facility] ([place]) - 03/30/2025 6:10 AM CDT Urine culture reflexed based upon urinalysis results. Testing performed by [facility] ([phone]) Magan Alexander MD LAB MICROBIOLOGY - GENERAL ORDERABLES Final Result [facility] ([place]) [address] [facility] [place] [address] * COVID-19 Coronavirus RNA Nasopharyngeal (03/28/2025 1:55 PM CDT) COVID-19 RNA Negative Negative Nasopharyngeal 03/28/2025 1: 55 PM CDT 03/28/2025 2:00 PM CDT Narrative [facility] ([place]) - 03/28/2025 2:33 PM CDT Is the patient experiencing any symptoms consistent with COVID (eg. Fever, cough, shortness of breath)?->No What is the reason for testing?->Screening prior to Behavioral health admission Interpretive data: Testing performed by [facility]. This test is performed using the [employer] Xpert Xpress CoV-2 plus assay. This is a real-time RT-PCR test intended for the qualitative detection of nucleic acid from the SARS-CoV-2. This assay has been cleared by the [place] Food and Drug administration. The performance characteristics have been verified by [facility]. Results must be considered in the clinical context, and a negative result does not rule out infection. Interpretive data last revised 2024. Interpretive data: Testing performed by [facility]. This test is performed using the [employer] Xpert Xpress CoV-2 plus assay. This is a real-time RT-PCR test intended for the qualitative detection of nucleic acid from the SARS-CoV-2. This assay has been cleared by the [place] Food and Drug administration. The performance characteristics have been verified by [facility]. Results must be considered in the clinical context, and a negative result does not rule out infection. Interpretive data last revised 2024. us Magan Alexander MD LAB MICROBIOLOGY - GENERAL ORDERABLES Final Result [facility] ([place]) [address] [facility] [place] [address] * eGFR (03/28/2025 1:55 PM CDT) eGFR [...] BLOOD ORDERABLE S Final Result [facility] ([place]) [address] [facility] [place] [address] * Differential, auto (03/28/2025 1:55 PM CDT) [...] S Final Result [facility] ([place]) [address] [facility] [place] [address] * Thyroid Function [place] (03/28/2025 1:55 PM CDT) [facility] TSH 2.32 0.30 - 4.20 mcIUnit/mL [facility] ([place]) Blood 03/28/2025 1:55 PM CDT 03/28/2025 2:00 PM CDT Magan Alexander MD LAB BLOOD ORDERABLE S Final Result Performing Organization Address City/[facility]/ZIP Co de Phone Number [facility] ([place]) [address] [facility] [place] [address] * (ABNORMAL) CBC with auto differential (03/28/2025 1:55 PM CDT) [facility] WBC 5.74 3.80 - 9.90 K/cumm Hgb [...] 28.6 27.1 - 33.3 pg [facility] ([place]) MCHC 32.8 32.3 - 35.7 g/dL [facility] [...] BLOOD ORDERABLE S Final Result [facility] ([place]) 1 [facility] [place] [address] * Magnesium (03/28/2025 1:55 PM CDT) Magnesium 2.0 1.4 - 2.5 mg/dL [facility] ([place]) Blood 03/28/2025 1:55 PM CDT 03/28/2025 7:25 PM CDT us Pierce Huber MD LAB BLOOD ORDERABLES Final Res ult Performing Organization Address [facility] Co de Phone Number [facility] ([place]) [address] [facility] [place] [address] * Ethanol (03/28/2025 1:55 PM CDT) Ethanol <10 <=10 mg/dL [facility] ([place]) Comment: Interpretive Data Legal limit of intoxication > or = 80 mg/dL Levels > or = 400 mg/dL are potentially TOXIC. Current interpretive data was last revised on 2018. Blood 03/28/2025 1:55 PM CDT 03/28/2025 2:00 PM CDT us Magan Alexander MD LAB BLOOD ORDERABLE S Final Result [facility] ([place]) [address] [facility] [place] [address] * Acetaminophen level (03/28/2025 1:55 PM CDT) [...] after ingestion Consult toxicology or poison control ([phone]) for unknown ingestion time. Current interpretive data was last revised 2023. Blood 03/28/2025 1:55 PM CDT 03/28/2025 7:25 PM CDT Pierce Huber MD LAB BLOOD ORDERABLES Final Res ult Performing Organization Address City/[facility]/ZIP Co de Phone Number [facility] ([place]) [address] [place] [address] [place] [address] * Salicylate level (03/28/2025 1:55 PM CDT) Salicylate <5.0 <=5.0 mg/dL [facility] ([place]) Comment: Interpretive Data Toxic: 30 mg/dL or greater. Current interpretive data was last revised 2023. Blood 03/28/2025 1:55 PM CDT 03/28/2025 7:25 PM CDT Pierce Huber MD LAB BLOOD ORDERABLES Final Res ult Performing Organization Address City/[facility]/ZIP Co de Phone Number [facility] ([place]) [address] [place] [address] [place] [address] * (ABNORMAL) Comprehensive metabolic panel (03/28/2025 1:55 [...] MD LAB BLOOD ORDERABLE S Final Result [facility] ([place] [address] [facility] of [facility] [place], [place] [id number] * hCG, blood, quantitative (02/16/2025 1:15 AM [...] BLES Edited Result - Final [facility] ([place]) [address] [facility] [place] [address] * hCG, urine, qualitative (02/16/2025 12:44 AM CDT) HCG, ur Negative Negative Urine 02/16/2025 12:4 4 AM CDT 02/16/2025 12:45 AM CDT Sun DOSHI LAB URINE ORDERABLES Zhanna l Result Performing Organization Address City/[facility] Co de Phone Number [facility] ([place]) 1 [facility] [place] [address] from Last 3 Months Insurance [facility] Advance Directives For more information, please contact: [phone] * Full Code (Latest Code Status on File) Date Activated Date Inactivated Comments 11/15/2022 9:06 PM 11/18/2022 9:47 PM Care Teams [employer] Developer Relationship Specialty Start Date End Date Hetal Malhotra NP [address] [place] [address] PCP - General Nurse Practitioner 03/28/25
[2025-04-09 01:31] VITALS: BP 103/64; PULSE 67; RESP 18; TEMP 36.8; O2SAT 99
== END 2025-04-09 01:36 | disposition home or self-care (01) ==
PROVIDERS: Emergency Provider Emergency Medicine
DX: S01.05XA Open bite of scalp, initial encounter (principal); S81.852A Open bite, left lower leg, initial encounter; S81.851A Open bite, right lower leg, initial encounter; W54.0XXA Bitten by dog, initial encounter
CPT/HCPCS: 12002; 99283; A9270